=== PATIENT | male | born 1945 | race Caucasian/White ===

== ENCOUNTER 2016-11-15 09:09 | Inpatient (IN) | payer OTHER, MEDICARE ==
[~2016-11-15 09:09] MED LIST: CHLORHEXIDINE GLUC HIBICLENS 118 ML BTL TP ONE; DEXAMETHASONE 10 MG/ML VIAL IVP ONE; ceFAZolin 2 GM/DEXTROSE 100 ML IV ONE
[2016-11-15] MEDS ORDERED: LIDOCAINE 1% 5 ML SDV ID PRN (10:03)
[2016-11-15] MEDS ORDERED: LR 1,000 ML IV ONE (10:03)
[2016-11-15] MEDS ORDERED: DEXAMETHASONE 10 MG/ML VIAL ONE (10:07)
[2016-11-15] MEDS ORDERED: CEFAZOLIN 2 GM/DEXTROSE/100 ML BAG IV ONE (10:07)
[2016-11-15] MEDS ORDERED: LIDOCAINE 1% 2 ML INJ ONE (10:07)
[2016-11-15] MEDS ORDERED: fentaNYL 250 MCG/5 ML INJ ONE (10:20)
[2016-11-15] MEDS ORDERED: PROPOFOL/EMULSION 500 MG/50 ML BOTTLE IV ONE ×2 (10:21)
[2016-11-15] MEDS ORDERED: THROMBIN (BOVINE) 5,000 UNIT VIAL TP ONE (10:21)
[2016-11-15] MEDS ORDERED: BUPIVACAINE/EPI 0.25% 30 ML SDV ONE (10:22)
[2016-11-15] MEDS ORDERED: BACITRACIN 50,000 UNITS/10 ML SYR IRR ONE (10:22)
[2016-11-15] MEDS ORDERED: BUPIVACAINE 0.25% 30 ML SDV ONE (10:22)
[2016-11-15] MEDS ORDERED: MIDAZOLAM 2 MG/2 ML VIAL ONE (11:00)
[2016-11-15] MEDS ORDERED: ROCURONIUM 50 MG/5 ML VIAL ONE (12:14)
[2016-11-15] MEDS ORDERED: DEXAMETHASONE 4 MG/ML VIAL ONE ×2 (12:14)
[2016-11-15] MEDS ORDERED: ONDANSETRON 4 MG/2 ML VIAL ONE (12:14)
[2016-11-15] MEDS ORDERED: GLYCOPYRROLATE 0.2 MG/1 ML VIAL ONE (12:15)
[2016-11-15] MEDS ORDERED: morphINE PF 5 MG/10 ML INJ ONE (12:38)
[2016-11-15] MEDS ORDERED: fentaNYL 100 MCG/2 ML INJ ONE (12:38)
[2016-11-15] MEDS ORDERED: HYDROmorphONE/DILAUDID 2 MG/ML INJ ONE (14:01)
[2016-11-15] MEDS ORDERED: ACETAMINOPHEN 325 MG TAB PO PRN (14:23)
[2016-11-15] MEDS ORDERED: DIAZEPAM 5 MG TAB PO PRN (14:23)
[2016-11-15] MEDS ORDERED: NALOXONE HCL 0.4 MG/ML INJ IVP PRN (14:23)
[2016-11-15] MEDS ORDERED: oxyCODONE IR 5 MG TAB PO PRN (14:23)
[2016-11-15] MEDS ORDERED: BISACODYL 10 MG SUPP PR PRN (14:23)
[2016-11-15] MEDS ORDERED: ZOLPIDEM TARTRATE 5 MG PO PRN (14:23)
[2016-11-15] MEDS ORDERED: LACTULOSE 20 GM/30 ML UDCUP PO PRN (14:23)
[2016-11-15] MEDS ORDERED: HYDROmorphONE/DILAUDID 6 MG/30 ML PCA IV PRN (14:23)
[2016-11-15] MEDS ORDERED: DIAZEPAM 10 MG/2 ML SYR IVP PRN (14:23)
[2016-11-15] MEDS ORDERED: diphenhydrAMINE 25 MG CAP PO PRN (14:23)
[2016-11-15] MEDS ORDERED: OXYCODONE/APAP 5/325 TAB PO PRN (14:23)
[2016-11-15] MEDS ORDERED: ONDANSETRON DISINTEGRATING 4 MG TAB PO PRN (14:23)
[2016-11-15] MEDS ORDERED: HYDROmorphONE/DILAUDID 1 MG/ML SYR IVP PRN (14:23)
[2016-11-15] MEDS ORDERED: ONDANSETRON 4 MG/2 ML VIAL IVP PRN (14:23)
[2016-11-15] MEDS ORDERED: MAGNESIUM HYDROXIDE 30 ML UDCUP PO PRN (14:23)
[2016-11-15] MEDS ORDERED: ZOLPIDEM TARTRATE 5 MG TAB PO PRN (14:24)
[2016-11-15] MEDS ORDERED: NS W/ 20 KCl/L 1,000 ML IV SCH (14:30)
--- NOTE | 2016-11-15 14:30 | SOAPPROG ---
SOAP Progress Note Assessment/Plan: Assessment: 71 yo M sp L4/5 TLIF Plan: stable to 3N LSO brace when out of bed scd/kayce/lovenox for dvt prophylaxis please call with neuro changes 11/15/16 14:28 Subjective: + back pain, no leg pain. Objective: somnolent PERRL, no facial droop JUNITO x 4 + light touch ICD10 Worksheet Patient Problems: Problems Problem Status Onset Fusion of spine of lumbar region Acute - ICD10 Problem Qualifiers (1) Fusion of spine of lumbar region
--- NOTE | 2016-11-15 15:11 | GOP ---
[f rep st] OPERATIVE REPORT DATE OF OPERATION: 11/15/2016 SURGEON: Marcellus Del Cid MD [employer] WORKER: BRANDEE Cole ANESTHESIA: General endotracheal. PREOPERATIVE DIAGNOSIS: L4-5 grade 1 spondylolisthesis with critical spinal stenosis and lateral re cess impingement. Intractable back pain and left greater than right lower extremity radicular disco mfort. Intractable neurogenic claudication. Failed conservative care. High risk surgical candidat e given age of 71 years, comorbidities. Required surgical intervention. POSTOPERATIVE DIAGNOSIS: L4-5 grade 1 spondylolisthesis with critical spinal stenosis and lateral r ecess impingement. Intractable back pain and left greater than right lower extremity radicular disc omfort. Intractable neurogenic claudication. Failed conservative care. High risk surgical chinyere te given age of 71 years, comorbidities. Required surgical intervention. PROCEDURE PERFORMED: Mini open exposure for left-sided L4-5 far lateral transpedicular decompressio n with L4-5 posterior nonsegmental (pedicle screw and axle device) fixation and posterolateral fusio n with local autograft and bone morphogenic protein. L4-5 posterior/transforaminal lumbar interbody fusion with 2 structural PEEK interbody spacers, local autograft and bone morphogenic protein. Use of intraoperative microscopy, fluoroscopy, and computer volumetric stereotactic navigation with int raoperative neurophysiologic testing. Injection of intrathecal narcotic analgesics and subcutaneous and intramuscular local anesthesia for postoperative pain control. FINDINGS: ESTIMATED BLOOD LOSS: 200 cc. INDICATIONS: The patient is a 71-year-old male with intractable low back pain, bilateral lower extr emity neurogenic claudication and left greater than right lower extremity radicular discomfort secon yvonne to critical spinal stenosis and lateral recess impingement and a grade 1 spondylolisthesis. Th e patient has failed extensive conservative care and presents now for surgical decompression and sta bilization through a mini open approach. DESCRIPTION OF PROCEDURE: After informed consent was obtained, the patient was taken to the operati ng room and placed in the prone position on the Anton table. The lumbosacral area was prepped and draped in a sterile fashion. After fluoroscopic localization of the correct level, the subcutaneou s and intramuscular tissues were infiltrated with local anesthesia. A midline linear incision was t hen created over the L4-5 spinous processes. This was carried down to the fascial layer, which was incised using monopolar electrocautery and carried in a subperiosteal plane along the spinous proces ses and lamina bilaterally. Intraoperative fluoroscopy was again utilized to verify the correct lev els. Following this, the dissection was carried out over the facet joint. The Versa-Trac retractor was placed and under high-power microscopy a left-sided far lateral transpedicular decompression wa s performed with complete unroofing of both the L4 and L5 nerve roots. There was an incredibly larg e amount of facet hypertrophy and root compression of both L4 and L5 and it was thoroughly and metic ulously dissected out and decompressed under high-power microscopy. The microscope was also angled across the midline and a right-sided recess and central canal decompression was also performed. Fol lowing adequate decompression, the wound was copiously irrigated with antibiotic irrigation. Meticu lous hemostasis was achieved. The [employer] neuronavigational system was then brought in and using [employer] volumetric stereotactic navigation pedicle screws were placed on the left at the L4 and L5 le vels. Each individual screw was tested neurophysiologically with monopolar electrical stimulation a nd interpretation of the potentials by the surgeon. A tanner was then placed and secured under distrac tion, during which time a complete diskectomy was performed with preparation of the endplates and pl acement of 2 structural PEEK interbody spacers, local autograft, and bone morphogenic protein for an L4-5 posterior/transforaminal lumbar interbody fusion. The screw and tanner system was then placed in a slight lateral compression in order to facilitate bony union and to minimize the potential for po sterior graft migration. An axial device was then placed in lieu of right-sided pedicle screws in o rder to maximize the bony surface area for further posterolateral fusion and minimize the potential complication of neural injury from the pedicle screws on that side. Following this, the remaining l kamran and facet joint on the right side were extensively decorticated, and the residual local autogr aft along with bone morphogenic protein was placed out laterally for posterolateral fusion at the L4 -5 level. 200 mcg of Duramorph along with 50 mcg of fentanyl were then injected intrathecally for p ostoperative pain control. The subcutaneous and intramuscular tissues were re-infiltrated with loca l anesthesia. A drain was placed and the wound was closed in a layered fashion using interrupted Vi cryl sutures followed by Steri-Strips on the skin after re-verification of good position of the scre ws, tanner, interspinous process clamp, and interbody spacers using biplanar fluoroscopy. COMPLICATIONS: None. DISPOSITION: The patient is currently in the process of being repositioned for extubation. /[id number]/MODL
[2016-11-15] MEDS: POLYETHYLENE GLYCOL 3350 17 GM PKT PO SCH ×2 (16:23→20:32)
[2016-11-15] MEDS: FAMOTIDINE 20 MG TAB PO SCH (20:33)
[2016-11-15] MEDS: morphINE SR 15 MG TAB PO SCH (20:33)
[2016-11-15] MEDS: SENNOSIDES/DOCUSATE SODIUM TAB PO SCH (20:33)
[2016-11-15] MEDS: METHOCARBAMOL 750 MG TAB PO PRN (20:48)
[2016-11-15] MEDS ORDERED: FAMOTIDINE 20 MG/NACL 50 ML IV SCH (21:00)
[2016-11-16] MEDS: METHOCARBAMOL 750 MG TAB PO PRN ×2 (04:33→20:35)
[2016-11-16 05:05] LABS: % IMMATURE GRANULYOCYTES 0.6 % (0.0-1.1); ADD DIFF? NO; ADD MORPH? YES; ADD SCAN? NO; ATYPICAL LYMPHOCYTE FLAG 0 (0-99); FRAGMENT RBC FLAG 0 (0-99); HEMATOCRIT 28.3 % (40.0-51.0); HEMOGLOBIN 9.2 g/dL (13.7-17.5); LEFT SHIFT FLG 20 (0-99); LIPEMIA HEMOLYSIS FLAG 80 (0-99); MEAN CELL HEMOGLOBIN 21.9 pg (27.9-34.1); MEAN CELL HEMOGLOBIN CONCENTR. 32.5 g/dL (32.4-36.7); MEAN PLATELET VOLUME 8.9 fL (8.7-11.7); PLATELET CLUMPS FLAG 0 (0-99); PLATELET COUNT 135 10^3/uL (150-400); RED BLOOD CELL COUNT 4.21 10^6/uL (4.40-6.38); RED CELL DISTRIBUTION WIDTH 15.1 % (11.5-15.2)
[2016-11-16 05:20] LABS: ANION GAP 8 mEq/L (8-16); CALCIUM 8.5 mg/dL (8.5-10.4); CARBON DIOXIDE 24 mEq/l (22-31); CHLORIDE 106 mEq/L (97-110); CREATININE 0.9 mg/dL (0.7-1.3); GLOMERULAR FILTRATION RATE > 60; GLUCOSE 153 mg/dL (70-100); POTASSIUM 4.8 mEq/L (3.5-5.2); SODIUM 138 mEq/L (134-144)
[2016-11-16 05:37] LABS: MEAN CELL VOLUME 67.2 fL (81.5-99.8)
[2016-11-16 07:16] LABS: HYPOCHROMIA 1+; MACROCYTES 1+; PLATELET ESTIMATE ADEQUATE (ADEQ); POLYCHROMASIA 1+
--- NOTE | 2016-11-16 07:52 | SOAPPROG ---
SOAP Progress Note Assessment/Plan: Assessment: POD #1 sp L4/5 TLIF doing well overall, pain well controlled some mild urinary retention neuro stable Plan: Start Flomax this AM for mild retention Continue NATTY drain -RN to teach empying and measurement so pt can do at home LSO when out of bed lumbar xrays today to evaluate hardware 11/16/16 07:48 Subjective: awake, alert,pain controlled. reports some mild urinary retention denies numbness tingling or weakness Objective: Vital Signs Temp Pulse Resp BP Pulse Ox 37.0 C 60 14 97/58 L 97 11/16/16 07:29 11/16/16 07:29 11/16/16 07:29 11/16/16 07:29 11/16/16 07:29 Laboratory Results 11/16/16 04:57 11/16/16 04:57 11/15/16 11/16/16 11/17/16 05:59 05:59 05:59 Intake Total 4400 Output Total 1255 Balance 3145 Neuro: Dodson, Sens +LT 5/5 bilat LE NATTY: 500ml ICD10 Worksheet Patient Problems: Problems Problem Status Onset Fusion of spine of lumbar region Acute
[2016-11-16] MEDS: morphINE SR 15 MG TAB PO SCH ×2 (09:56→20:32)
[2016-11-16] MEDS: FAMOTIDINE 20 MG TAB PO SCH ×2 (09:57→20:33)
[2016-11-16] MEDS: ENOXAPARIN 40 MG/0.4 ML SYR SC SCH (09:57)
[2016-11-16] MEDS: POLYETHYLENE GLYCOL 3350 17 GM PKT PO SCH ×3 (09:57→21:46)
[2016-11-16] MEDS: TAMSULOSIN HCL 0.4 MG CAP PO SCH (09:57)
[2016-11-16] MEDS: SENNOSIDES/DOCUSATE SODIUM TAB PO SCH ×2 (09:57→20:32)
[2016-11-16] MEDS: HYDROCODONE/APAP 10/325 TAB PO PRN (18:19)
[2016-11-17] MEDS: METHOCARBAMOL 750 MG TAB PO PRN ×3 (02:00→14:29)
[2016-11-17] MEDS: HYDROCODONE/APAP 10/325 TAB PO PRN (02:00)
[2016-11-17 07:30] VITALS: BP 109/50; PULSE 82; RESP 15; TEMP 98.2; O2SAT 88
--- NOTE | 2016-11-17 09:08 | NEUSURGPN ---
Assessment/Plan: POD #2 sp L4/5 TLIF Plan: Continue Flomax this AM for mild retention, will follow up with PCP Continue NATTY drain -RN to teach empying and measurement so pt can do at home LSO when out of bed lumbar xrays demonstrate intact hardware PT/OT DVT prophx: TEDs, SCDs, Lovenox Discussed with Dr. Denise Please notify NS with any change in neuro/motor exam 11/16/16 07:48 Subjective: low back pain tolerable with medications Objective: NAD A&Ox3 MAEx4 / and equal in BUE and BLE. NATTY drain serosanginous - Physician Discussed Patient with Dr.: Nehemias Neurosurgery Physical Exam - Vitals, I&O, Labs I and O 11/16/16 11/17/16 11/18/16 05:59 05:59 05:59 Intake Total 4400 Output Total 1255 840 Balance 3145 -840 Weight 58.967 kg Intake: Oral (ml) 1300 IV Intake (ml) 2000 IV Infused (ml) 1100 NS W/ 20 KCl/L 1,000 ml @ 1000 75 mls/hr IV CONT NANDO Rx #:[id number] ceFAZolin 1 GM/DEXTROSE 100 50 ml @ 200 mls/hr IV Q8H NANDO Rx#:[id number] Output: Urine (ml) 550 750 Toilet 350 Urinal 200 750 Estimated Blood Loss (ml) 200 Wound Drainage (ml) 505 90 Left Back Anton Grubbs 505 90 Other: Intake Quantity Yes Yes Sufficient Number of Voids Urinal 1 1 Post Void Residual Scan Volume (ml) Toilet 402 Urinal 95 Vital Signs Temp Pulse Resp BP Pulse Ox 36.8 C 82 15 109/50 L 88 L 11/17/16 07:29 11/17/16 07:29 11/17/16 07:29 11/17/16 07:29 11/17/16 07:29 Laboratory Results 11/16/16 04:57 11/16/16 04:57 ICD10 Worksheet Patient Problems: Problems Problem Status Onset Fusion of spine of lumbar region Acute
[2016-11-17] MEDS: ENOXAPARIN 40 MG/0.4 ML SYR SC SCH (09:25)
[2016-11-17] MEDS: POLYETHYLENE GLYCOL 3350 17 GM PKT PO SCH ×2 (09:25→14:29)
[2016-11-17] MEDS: TAMSULOSIN HCL 0.4 MG CAP PO SCH (09:26)
[2016-11-17] MEDS: morphINE SR 15 MG TAB PO SCH (09:29)
[2016-11-17] MEDS: SENNOSIDES/DOCUSATE SODIUM TAB PO SCH ×2 (09:29→14:29)
[2016-11-17] MEDS: FAMOTIDINE 20 MG TAB PO SCH (09:30)
--- NOTE | 2016-11-28 16:14 | GDS ---
[f rep st] DISCHARGE SUMMARY ADMISSION DIAGNOSIS: L4-5 spondylolisthesis and stenosis. DISCHARGE DIAGNOSIS: Status post L4-5 transforaminal lumbar interbody fusion. HISTORY AND PHYSICAL: Please see admission history and physical. HOSPITAL COURSE: Patient is a 71-year-old male who presented with lumbar degenerative joint disease and radicular leg symptoms. He was found to have L4-5 spondylolisthesis with severe stenosis. He was taken to the operating room on 11/15/2016 where he underwent an L4-5 transforaminal lumbar inter body fusion. There were no intraoperative complications, and he was admitted to the floor for obser vation. On the floor, he was tolerating a regular diet, and his pain was controlled with p.o. pain medications. He was discharged home in stable condition on 11/17/2016. Patient was discharged with lumbar fusion instructions, and recommended he return for neurosurgical followup appointment in 10- 14 days. /[id number]/MODL
== END 2016-11-17 15:12 | disposition home or self-care (01) | DRG 460 ==
LOC: F3E 09:09 → F3N 13:39
PROVIDERS: ADMIT Neurological Surgery; ATTEND Neurological Surgery
DX: M48.06 Spinal stenosis, lumbar region (principal); M43.16 Spondylolisthesis, lumbar region
CPT/HCPCS: 97161-GP; 97165-GO; 97535-GO; C1713; G8978-GP-CI; G8979-GP-CI; G8980-GP-CI; G8987-GO-CJ; G8988-GO-CI; J0690; J1100; J1170; J1650; J2250; J2274; J2405; J2704; J3010

== ENCOUNTER → 2017-02-19 | Outpatient (CLI) | payer OTHER, MEDICARE | LOC: FIMAGING 15:29 | PROVIDERS: ATTEND Physician Assistant Surgical | DX: Z98.1 Arthrodesis status (principal) ==

== ENCOUNTER → 2017-05-13 | Outpatient (CLI) | payer OTHER, MEDICARE | LOC: FIMAGING 14:49 | PROVIDERS: ATTEND Physician Assistant Surgical | DX: Z09 Encounter for follow-up examination after completed treatment for conditions other than malignant neoplasm (principal); Z98.1 Arthrodesis status; M43.16 Spondylolisthesis, lumbar region; M51.37 Other intervertebral disc degeneration, lumbosacral region ==

== ENCOUNTER → 2017-11-08 | Outpatient (CLI) | payer OTHER, MEDICARE | LOC: FIMAGING 12:43 | PROVIDERS: ATTEND Neurological Surgery | DX: Z09 Encounter for follow-up examination after completed treatment for conditions other than malignant neoplasm (principal); M51.36 Other intervertebral disc degeneration, lumbar region; M51.37 Other intervertebral disc degeneration, lumbosacral region; Z98.1 Arthrodesis status ==

== ENCOUNTER → 2018-10-30 | Outpatient (CLI) | payer OTHER, MEDICARE | LOC: FIMAGING 13:40 | PROVIDERS: ATTEND Physician Assistant Surgical | DX: M43.16 Spondylolisthesis, lumbar region (principal); M51.37 Other intervertebral disc degeneration, lumbosacral region; Z98.1 Arthrodesis status ==